=== PATIENT | male | born 1975 | race Caucasian/White ===

== ENCOUNTER 2021-01-15 12:34 | Emergency (ER) | payer BC, SELFPAY ==
--- NOTE | ~2021-01-15 | XR_ITS ---
XR wrist LT min 3V DATE: 01/15/2021 13:08 INDICATION: Fall. Left wrist pain. TECHNIQUE: 4 views COMPARISON: None FINDINGS: No recent fracture or dislocation. No periosteal reaction or bone destruction. IMPRESSION: No significant abnormality Reviewed, dictated and finalized at location A. IMPRESSION: No significant abnormality
[2021-01-15 12:40] VITALS: BP 161/111; PULSE 115; RESP 20; TEMP 37.1; O2SAT 96
--- NOTE | 2021-01-15 13:00 | ED.GENADULT ---
HPI - General Adult General Chief complaint: Extremity Injury, Upper Stated complaint: left wrist Source: patient Mode of arrival: ambulatory Limitations: no limitations History of Present Illness HPI narrative: Torrey is a 45M with a PMH of right wrist injury s/p surgery, PTSD, pulmonary embolism, and GERD that presented to the ER with pain in his left wrist pain. He slipped on the stairs and hurt it. He is not sure if he fell on it or grabbed the railing and hurt it. He has no other injuries or concerns. Related Data Home Medications Medication Instructions Recorded Confirmed B-complex with vitamin C [Vitamin 1 tablet PO DAILY 01/15/21 01/15/21 B Complex-8] aspirin 325 mg PO DAILY 01/15/21 01/15/21 citalopram 10 mg PO DAILY 01/15/21 01/15/21 lorazepam 0.5 mg PO TID PRN 01/15/21 01/15/21 metoprolol tartrate 50 mg PO Q12H 01/15/21 01/15/21 pantoprazole 40 mg PO DAILY 01/15/21 01/15/21 sildenafil (pulm.hypertension) 20 mg PO PRN 01/15/21 01/15/21 tadalafil 20 mg PO PRN 01/15/21 01/15/21 Allergies Allergy/AdvReac Type Severity Reaction Status Date / Time SLOBID Allergy Mild JITTERY Uncoded 03/14/07 12:21 AND SWELLING OF THE MOUTH Review of Systems Constitutional: Constitutional: Reports no additional constitutional complaints Eyes: Eyes: Reports no additional eye complaints ENT: Reports system reviewed and no additional complaints, except as documented Cardiovascular: Cardiovascular: Reports no additional cardiovascular complaints Respiratory: Respiratory: Reports no additional respiratory complaints Gastrointestinal: Gastrointestinal: Reports no additional gastrointestinal complaints Genitourinary: Genitourinary: Reports no additional male genitourinary complaints Musculoskeletal: Musculoskeletal: Reports as per HPI Integumentary/Breasts: Skin/Breast: Reports system reviewed and no additional complaints, except as docu Neurologic: Reports system reviewed and no additional complaints, except as documented Psychiatric: Psychiatric: Reports no additional psychiatric complaints Endocrine: Endocrine: Reports no additional endocrine complaints Hematologic/Lymphatic: Hematologic/Lymphatic: Reports no additional hematologic/lymphatic complaints Allergic/Immunologic: Allergic/Immunologic: Reports no additional allergic/immunologic complaints Exam Const: General: no acute distress and alert Orientation/consciousness: patient oriented x3 Limitations: No altered mental status HENMT: Head: normal to inspection Other: atraumatic Eyes: Conjunctivae: conjunctivae normal Pupils: Equal, round and reactive pupils present Neck: Neck: normal visual inspection Chest: Chest palpation & inspection: normal inspection of the chest Resp: Effort & Inspection: normal respiratory effort, not labored and not tachypneic Cardio: Rate: regular rate Skin: General skin exam: normal color Rashes: no rashes Neuro: General: patient oriented x3 and moves all extremities Extrem: General: normal to inspection Other: Left hand has no deformity. Normal yard assistant strenght. No pain with opposed wrist flexion/extension. Negative Tinel. Mild TTP on the ulnar side of the left wrist. Psych: Mental Status: mental status grossly normal Affect: Anxious affect present Course Course Emergency Course: Trever was evaluated. Ordered radiographs. Declined pain meds at this time. XR wrist LT min 3V DATE: 01/15/2021 13:08 INDICATION: Fall. Left wrist pain. TECHNIQUE: 4 views COMPARISON: None FINDINGS: No recent fracture or dislocation. No periosteal reaction or bone destruction. IMPRESSION: No significant abnormality Vital Signs Vital signs: Vital Signs Temperature 98.8 F 01/15/21 12:40 Pulse Rate 115 H 01/15/21 12:40 Respiratory Rate 20 01/15/21 12:40 Blood Pressure 161/111 H 01/15/21 12:40 Pulse Oximetry 96 01/15/21 12:40 Temperature 98.8 F 01/15/21 12:40 Pulse Rate 115
[2021-01-15 13:25] VITALS: RESP 16
== END 2021-01-15 13:25 | disposition home or self-care (01) ==
PROVIDERS: Emergency Provider Family Medicine; PCP Family Medicine
DX: S63.502A Unspecified sprain of left wrist, initial encounter (principal); W01.0XXA Fall on same level from slipping, tripping and stumbling without subsequent striking against object, initial encounter
CPT/HCPCS: 73110; 99283

== ENCOUNTER 2021-11-07 00:54 | Emergency (ER) | payer BC, SELFPAY ==
[2021-11-07 00:57] VITALS: BP 183/114; PULSE 119; RESP 16; TEMP 36.3; O2SAT 97
--- NOTE | 2021-11-07 01:04 | ECG_ITS ---
Measurements Intervals [place] Rate: 106 P: 47 [place]: 145 QRS: -38 QRSD: 117 T: 24 QT: 328 QTc: 436 Interpretive Statements SINUS TACHYCARDIA LEFT AXIS DEVIATION INCOMPLETE RIGHT BUNDLE BRANCH BLOCK LOW QRS VOLTAGE IN PRECORDIAL LEADS BASELINE ARTIFACT- I, II, III, AVR, AVL, AVF, V1-V4 BORDERLINE ECG Electronically Signed On 11-07-2021 5:47:47 INCISING MACHINE OPERATOR by Dileep Barboza D.O.
[2021-11-07 01:08] VITALS: O2SAT 97
--- NOTE | 2021-11-07 01:14 | ED.SOB ---
HPI - SOB/Dyspnea General Chief Complaint: Shortness of Breath/Dyspnea Stated Complaint: sob Time Seen by Provider: 11/07/21 01:08 Source: patient and family Mode of arrival: ambulatory Limitations: no limitations History of Present Illness HPI Narrative: 45-year-old man with a history of PTSD, GERD, pulmonary emboli, comes in today complaining of waking up this evening short of breath. Patient states he also feels dizzy and has been seeing spots. Seven sweaty and has started racing but he has had no chest pain, nausea, vomiting, syncope. States he has a history of panic attacks but he has not had any for years and this feels different. Denies any leg swelling, recent immobilization. MD elicited complaint: shortness of breath Pertinent past history: PE Onset (ago): hour(s) (1) Severity: moderate Exacerbating factors: nothing Relieving factors: nothing Known history of: PE Associated symptoms: palpitations, diaphoresis and lightheadedness Treatment prior to arrival: none Related Data Home oxygen amount: none Home Medications Medication Instructions Recorded Confirmed B-complex with vitamin C [Vitamin 1 tablet PO DAILY 01/15/21 11/07/21 B Complex-8] aspirin 325 mg PO DAILY 01/15/21 11/07/21 citalopram 10 mg PO DAILY 01/15/21 11/07/21 lorazepam 0.5 mg PO TID PRN 01/15/21 11/07/21 pantoprazole 40 mg PO DAILY 01/15/21 11/07/21 sildenafil (pulm.hypertension) 20 mg PO PRN 01/15/21 11/07/21 tadalafil 20 mg PO PRN 01/15/21 11/07/21 Allergies Allergy/AdvReac Type Severity Reaction Status Date / Time SLOBID Allergy Mild JITTERY Uncoded 11/07/21 01:03 AND SWELLING OF THE MOUTH Review of Systems Review of Systems: All systems reviewed & are unremarkable except as noted in HPI and below Constitutional: Constitutional: Denies chills and Denies fever(s) ENT: Denies nasal congestion and Denies sore throat Cardiovascular: Cardiovascular: Denies chest pain and Denies radiating jaw, neck or arm pain Respiratory: Respiratory: Denies chest congestion, Denies cough, Reports dyspnea and Denies wheezing Gastrointestinal: Gastrointestinal: Denies no additional gastrointestinal complaints, Denies abdominal pain, Denies nausea and Denies vomiting Musculoskeletal: Musculoskeletal: Denies arthralgias and Denies joint swelling Comments: Denies calf pain and swelling Integumentary/Breasts: Skin/Breast: Reports pruritus, Reports erythema and Reports rash Allergic/Immunologic: Allergic/Immunologic: Denies lip swelling and Denies throat swelling PMFSH Past Medical History Medical History (Updated 11/07/21 @ 02:33 by Otilio Hill MD) GERD (gastroesophageal reflux disease) PTSD (post-traumatic stress disorder) Pulmonary emboli Surgical History Surgical History (Updated 11/07/21 @ 01:19 by Otilio Hill MD) H/O knee surgery History of ankle surgery Social History Social History (Updated 11/07/21 @ 01:19 by Otilio Hill MD) Smoking status: Never smoker Alcohol intake: current Alcohol use details: Daily Substance use: never Living arrangements: with family Exam Const: General: alert Nutritional Appearance: well nourished Limitations: no limitations HENMT: Mouth: Yes moist mucous membranes Throat: posterior oropharynx normal Eyes: Conjunctivae: conjunctivae normal Pupils: Equal, round and reactive pupils present EOM: EOMs intact bilaterally Resp: Effort & Inspection: normal respiratory effort and not labored Auscultation: clear to auscultation bilaterally, no rales, no rhonchi and no wheezes Cardio: Rate: tachycardic Rhythm: regular rhythm Heart sounds: no murmurs GI: GI Palp: Yes Soft to palpation and No Tenderness to palpation present (GI) Skin: General skin exam: normal color, no jaundice and no pallor Rashes: no rashes Neuro: General: patient oriented x3, moves all extremities, no focal motor deficits and CN's II-XI intact bilaterally Speech: normal s
[2021-11-07 01:34] LABS: Basophils Absolute Auto 0.04 K/mm3 (0.00-0.10); Basophils Percent Auto 0.5 % (0.0-1.0); Eosinophils Percent Auto 4.9 % (1.0-6.0); Hematocrit 44.8 % (40.0-54.0); Hemoglobin 16.6 g/dL (14.0-18.0); Immature Granulocyte Absolute 0.05 K/mm3 (0.00-0.00); Immature Granulocyte Percent A 0.6 % (0.0-0.0); Lymphocytes Absolute Auto 2.28 K/mm3 (1.10-4.50); Lymphocytes Percent Auto 27.9 % (18.0-42.0); Mean Corpuscular HGB Conc 37.1 g/dL (32.0-36.0); Mean Corpuscular Hemoglobin 34.6 pg (27.0-31.0); Mean Corpuscular Volume 93.3 fL (78.0-102.0); Mean Platelet Volume 9.6 fl (8.7-11.0); Monocytes Percent Auto 8.6 % (2.0-11.0); Neutrophils Absolute Auto 4.7 K/mm3 (1.7-7.2); Neutrophils Percent Auto 57.5 % (50.0-70.0); Platelet Count Result 272 K/mm3 (150-420); Red Cell Distribution Width 11.3 % (11.6-14.4); White Blood Count 8.2 K/mm3 (4.8-10.8)
[2021-11-07 01:57] LABS: Alanine Aminotransferase 57 U/L (16-63); Albumin Level 3.6 g/dL (3.4-5.0); Alkaline Phosphatase 87 U/L (46-116); Anion Gap 12 mmol/L (8-16); Aspartate Amino Transferase 33 U/L (15-37); Bilirubin,Total 0.4 mg/dL (0.00-1.00); Blood Urea Nitrogen 15 mg/dL (7-18); Carbon Dioxide 24 mmol/L (21-32); Chloride 102 mmol/L (98-108); Estimated CRCL calculation 113 ml/min; Estimated Glomerular Filt Rate > 60; Glucose 173 mg/dL (70-99); Magnesium 2.1 mg/dL (1.8-2.4); NT Pro B Type Natriuretic Pept 24 pg/mL (0-125); Osmolality Calculated 290 mOsm/kg (285-295); Potassium 3.7 mmol/L (3.5-5.1); Sodium 138 mmol/L (136-145); Troponin I 7.7 ng/L (0.00-60.4)
[2021-11-07 02:12] LABS: SARS-CoV-2 RNA PCR Negative (Negative)
[2021-11-07 02:23] LABS: D Dimer 0.46 mg/L (0.19-0.50); Partial Thromboplastin Time 28.9 SEC (23.90-30.70); Prothrombin Time 10.8 Seconds (9.50-12.10)
[2021-11-07] MEDS: amLODIPine BESYLATE 5 MG TABLET PO (02:43)
[2021-11-07 02:45] VITALS: BP 158/110; PULSE 107; RESP 16; TEMP 36.2; O2SAT 96
== END 2021-11-07 02:50 | disposition home or self-care (01) ==
PROVIDERS: Emergency Provider Emergency Medicine; PCP Family Medicine
DX: R06.02 Shortness of breath (principal); I10 Essential (primary) hypertension; Z20.822 Contact with and (suspected) exposure to COVID-19
CPT/HCPCS: 36415; 80053; 83735; 83880; 84484; 85025; 85380; 85610; 85730; 93005; 99283; 99284; A9270; C9803; U0003; U0005